=== PATIENT | female | born 1995 | race Caucasian/White ===

== ENCOUNTER 2017-02-20 21:49 | Emergency (ER) | payer OTHER ==
[~2017-02-20] VITALS: Ht 167.6 cm; Wt 107.5 kg
[2017-02-20 21:53] VITALS: Ht 167.6 cm; Wt 107.5 kg
[2017-02-20] MEDS ORDERED: ONDANSETRON (ODT) 4 MG TAB ODT STA (22:31)
[2017-02-20 22:54] LABS: URINE BLOOD (Dip) POC 2+ (NEGATIVE)
[2017-02-20] MEDS ORDERED: HYDROCODONE/APAP (5/325) TAB PO ONE (23:00)
[2017-02-20] MEDS ORDERED: FIORICET PO (23:23)
--- NOTE | 2017-02-20 23:26 | ERD ---
ER Documentation Chief Complaint Date/Time DATE: 02/20/17 TIME: 23:25 Chief Complaint headache, nausea x 1 day HPI This patient is a 21-year-old female with no significant medical history presenting to the emergency department for intermittent bilateral headache and nausea which began this morning. Pain is 7 out of 10. She took ibuprofen with mild relief. LMP was 4 days ago. She denies dizziness, fevers, chills, vomiting, diarrhea, or other symptoms. ROS All systems reviewed and are negative except as per history of present illness. Medications Home Meds Active Scripts Acetamin/Butalbital/Caffeine* (Fioricet*) [id number] Tab, 1 TAB PO Q6H Y for PAIN, #30 TAB Prov:BARBY MADDEN PA-C 02/20/17 Allergies Allergies: Coded Allergies: No Known Allergy (Unverified , 02/20/17) PMhx/Soc Medical and Surgical Hx: pt denies Medical Hx, pt denies Surgical Hx History of Surgery: No Anesthesia Reaction: No Hx Neurological Disorder: No Hx Respiratory Disorders: No Hx Cardiac Disorders: No Hx Psychiatric Problems: No Hx Miscellaneous Medical Probl: No Hx Alcohol Use: Yes (socially) Hx Substance Use: No Hx Tobacco Use: No Physical Exam Vitals Vital Signs Date Time Temp Pulse Resp B/P Pulse Ox O2 Delivery O2 Flow Rate FiO2 02/20/17 21:53 97.8 89 20 145/96 99 Physical Exam Const: Well, nontoxic appearing female. Head: Atraumatic Eyes: Normal Conjunctiva ENT: Normal External Ears, Nose and Mouth. Neck: Full range of motion..~ No meningismus. Resp: Clear to auscultation bilaterally Cardio: Regular rate and rhythm, no murmurs Abd: Soft, non tender, non distended. Normal bowel sounds Skin: No petechiae or rashes Back: No midline or flank tenderness Ext: No cyanosis, or edema Neur: Awake and alert Psych: Normal Mood and Affect Results 24 hrs Laboratory Tests Test 02/20/17 22:57 Bedside Urine pH (LAB) 6.0 Bedside Urine Protein (LAB) 1+ Bedside Urine Glucose (UA) Negative Bedside Urine Ketones (LAB) Negative Bedside Urine Blood 2+ Bedside Urine Nitrite (LAB) Negative Bedside Urine Leukocyte Esterase (L Negative Current Medications Medications (Trade) Dose Ordered Sig/Ming Route PRN Reason Start Time Stop Time Status Last Admin Dose Admin Acetaminophen/ Hydrocodone Bitart (Meridian (5/325)) 1 tab ONCE ONCE PO 02/20/17 23:00 02/20/17 23:01 DC 02/20/17 22:43 Ondansetron HCl (Zofran Odt) 4 mg ONCE STAT ODT 02/20/17 22:31 02/20/17 22:32 DC 02/20/17 22:42 Procedures/MDM 21-year-old female presents secondary to complaints of headache and nausea. On physical examination the patient has no neurological deficits. The patient does have history of headache in the past. Blood pressure was found to be slightly elevated at 145/96. Patient's blood pressure was elevated (>120/80) but appears stable without evidence of hypertension emergency or urgency. The patient was counseled about the risks of hypertension and urged to pursue outpatient monitoring and therapy within a week with their primary care physician. The patient was medicated with p.o. Meridian and p.o. Zofran in the department she was feeling improved on reevaluation. The patient is stable for outpatient management with a prescription for Fioricet. Her questions and concerns were addressed. Close follow-up with the primary care physician advised. Strict ER return precautions were discussed. I have low suspicion for intracranial hemorrhage, mass-effect, or other emergent conditions. Departure Diagnosis: Primary Impression: Headache Headache type: unspecified Headache chronicity pattern: acute headache Intractability: not intractable Qualified Code: R51 - Acute nonintractable headache, unspecified headache type Condition: Fair Patient Instructions: Self-Care for Headaches Referrals: [facility] YOU HAVE RECEIVED A MEDICAL SCREENING EXAM AND THE RESULTS INDICATE THAT YOU DO NOT HAVE A CONDITION THAT REQUIRES URGENT TREATMENT IN THE EMERGENCY DEPARTMENT. FURTHER EVALUATION AND TREATMENT OF YOUR CONDITION CAN WAIT UNTIL YOU ARE SEEN IN YOUR DOCTORS OFFICE WITHIN THE NEXT 1-2 DAYS. IT IS YOUR RESPONSIBILITY TO MAKE AN APPOINTMENT FOR FOL- CARE. IF YOU HAVE A PRIMARY DOCTOR --you should call your primary doctor and schedule an appointment IF YOU DO NOT HAVE A PRIMARY DOCTOR YOU CAN CALL OUR PHYSICIAN REFERRAL HOTLINE AT IF YOU CAN NOT AFFORD TO SEE A PHYSICIAN YOU CAN CHOSE FROM THE FOLLOWING [facility] [address] [facility]. [facility] [address] [facility] [address] [facility] [address] [facility] [address]. [facility] [address] Additional Instructions: Follow up with your PCP within the next 1-3 days for a repeat evaluation and a possible referral to a specialist, if required. Return the the emergency department immediately if symptoms worsen or change. If you have any questions regarding medications, ask your pharmacist or us before you leave. If any adverse reactions, occur while taking your medications, discontinue the treatment and return to the emergency department immediately. If any new or worsening symptoms, uncontrolled fevers, or other unexplained symptoms occur, return to the emergency department immediately. Take your medications as directed, and complete the entire course of treatment. BARBY MADDEN PA-C February 20, 2017 23:26
[2017-02-20 23:30] VITALS: BP 142/96; PULSE 86; RESP 20; TEMP 97.8
== END 2017-02-20 23:24 | disposition home or self-care (01) ==
LOC: FTE 21:49
DX: R51 Headache (principal); R11.0 Nausea
CPT/HCPCS: 81003; Z7610; 99283